=== PATIENT | male | born 1990 | race Caucasian/White ===

== ENCOUNTER 2021-04-23 06:22 | Inpatient (IN) | payer MEDICAID ==
[~2021-04-23] VITALS: Ht 180.3 cm; Wt 71.8 kg
[2021-04-23] MEDS ORDERED: HALOPERIDOL 5 MG TABLET PO PRN (08:30)
[2021-04-23] MEDS ORDERED: ZOLPIDEM TARTRATE 10 MG TABLET PO PRN (08:30)
[2021-04-23 13:22] VITALS: BP 106/73
[2021-04-23 15:59] VITALS: BP 106/73
[2021-04-23 16:18] VITALS: BP 105/66
[2021-04-24 06:18] VITALS: BP 105/62
[2021-04-24 09:02] VITALS: BP 118/57
[2021-04-24] MEDS: BACITRACIN 28 GM OINTMENT TP SCH ×2 (09:51→17:00)
[2021-04-24] MEDS: NICOTINE 14 MG/24 HOUR PATCH TD PRN (19:04)
[2021-04-24] MEDS: LORazepam 2 MG TABLET PO PRN (19:04)
[2021-04-24 22:49] VITALS: BP 115/68
[2021-04-25 01:18] VITALS: BP 111/64
[2021-04-25] MEDS: BACITRACIN 28 GM OINTMENT TP SCH (08:06)
[2021-04-25] MEDS: NICOTINE 14 MG/24 HOUR PATCH TD PRN (08:06)
[2021-04-25] MEDS: LORazepam 2 MG TABLET PO PRN (08:07)
[2021-04-25 09:01] VITALS: BP 116/76
== END 2021-04-25 14:10 | disposition home or self-care (01) | DRG 750 ==
LOC: B3A 09:21 → B2S 04-24 13:40
DX: F20.0 Paranoid schizophrenia (principal); I95.9 Hypotension, unspecified; F10.10 Alcohol abuse, uncomplicated; Y90.9 Presence of alcohol in blood, level not specified
CPT/HCPCS: Z7610